=== PATIENT | male | born 1955 | race Caucasian/White ===

== ENCOUNTER → 2020-10-04 12:50 | Outpatient (BNVA) | payer MEDICARE, OTHER, SELFPAY | PROVIDERS: Family Provider Internal Medicine; PCP Internal Medicine; Visit Provider Nurse Practitioner Family | DX: J06.9 Acute upper respiratory infection, unspecified (principal); Z20.822 Contact with and (suspected) exposure to COVID-19 | CPT/HCPCS: 87426 ==

== ENCOUNTER 2020-10-06 05:49 | Outpatient (CLI) | payer MEDICARE, OTHER, SELFPAY ==
--- NOTE | 2020-10-06 07:30 | A.OFFVIS_ITS ---
Patient Information Referred by: NOAH Morales Symptom onset date: 10/02/20 COVID 19 common symptoms: positive fever(s), chills, cough, body aches, headache(s), throat pain, nasal congestion, nausea and diarrhea Severity: moderate Treatment prior to arrival: none Other details: Patient is a 64-year-old male who tested positive for COVID on 10/04. His vitals are stable/not requiring oxygen. Qualifies given his risk factors of age, CAD, DM, CHF. Risks and benefits of using experimental monoclonal antibody infusion discussed and patient would like to proceed. [facility] COVID test results: SARS-CoV-2 Antigen (Rapid) Positive (Negative) H 10/04/20 12:50 10/04/20 Criteria/Plan Inclusion/Exclusion Criteria weight >/= 40kg, + direct test </= 10 days ago and symptom onset </= 10 days ago age >/= 65, has diabetes, age >/= 55 and has hypertension and age >/= 55 and has diabetes not requiring hospitalization, not requiring oxygen (if not chronically on oxygen) and no increase oxygen requirement (if chronically on oxygen) Patient education patient/family/caregiver received/reviewed fact sheet, Emergency Use Authorization/unapproved drug status discussed with patient/family/caregiver, alternatives to this treatment discussed with patient/family/caregiver, risks and benefits of medication reviewed with patient/family/caregiver, patient/family/caregiver given opportunity for questions, which were answered and patient consents to receiving Monoclonal Antibody Treatment Plan for treatment Meets criteria for Monoclonal Antibody infusion Ordering Monoclonal Antibody infusion for today
[2020-10-06 07:56] VITALS: BP 164/69; PULSE 59; RESP 16; TEMP 37; O2SAT 96
[2020-10-06 09:01] VITALS: BP 169/78; PULSE 60; RESP 15; TEMP 36.5; O2SAT 96
[2020-10-06 10:04] VITALS: BP 174/72; PULSE 59; RESP 16; TEMP 36.7; O2SAT 97
--- NOTE | 2020-10-12 14:18 | DCPLANNER ---
manager package had message that patient received the monoclonal antibody infusion. manager package called to check on patient after receiving the infusion. manager package spoke with patients , she stated that patient is feeling much better. She stated that before the infusion, patient felt really fatigued, was really tired and weak. After the infusion patient is still a little weak, but he does not have any muscle aches, he has not ran a fever, he is still a little weak. Over all patient is doing good.
== END 2020-10-06 05:50 | disposition home or self-care (01) ==
LOC: ER 05:54
PROVIDERS: PCP Family Medicine; Visit Provider Nurse Practitioner Family
DX: U07.1 COVID-19 (principal)
CPT/HCPCS: 96365

== ENCOUNTER 2020-12-08 08:39 | Day surgery (SDC) | payer OTHER, MEDICARE, SELFPAY ==
--- NOTE | 2020-12-03 14:44 | PC.NURSE ---
Per Sherley Cullen, Cindy Del Rosario, and Incident Command the pt does NOT have to have a covid test done before his colonoscopy scheduled for Dec 08, 2020 because he tested positive for covid on October 04, 2020. Pt and his were notified as well as Dr. Camara.
[2020-12-06 08:08] VITALS: BMI 34.0
[2020-12-08 09:10] VITALS: BP 159/77; PULSE 65; RESP 18; TEMP 36.6; O2SAT 98
[2020-12-08] MEDS: sodium chloride 0.9% 1,000 ML 30 ML IV (09:26)
[2020-12-08 09:29] LABS: Glucose Point of Care 134 mg/dL (70-110)
--- NOTE | 2020-12-08 09:48 | ANES.PREANE2 ---
Pre-Anesthetic Assessment Pre-Anesthetic Assessment: Height/Weight: Height 1.68 m Weight 95.708 kg Temp Pulse Resp BP Pulse Ox 97.8 F 65 18 159/77 98 12/08/20 09:10 12/08/20 09:10 12/08/20 09:10 12/08/20 09:10 12/08/20 09:10 Preop Diagnosis: History of partial colectomy and ischemic colitis, occult blood Proposed Procedure: Operation Date: 12/08/20 10:00 Proposed Procedures p Colonoscopy 29597 z87.19(Not Applicable) - Santino Michael MD Was Beta Gary taken within 24 hours: Yes Was Clonidine taken within 24 hours: N/A Last intake: Intake Last Liquid Date 12/07/20 Last Liquid Time 19:00 Last Solid Date 12/06/20 Last Solid Time 19:00 Social: Social History: No alcohol and No tobacco Exam: Pre-Anes Outpt Exam: alert, oriented x 3, clear to auscultation bilaterally and regular rate & rhythm Airway: Submandibular: WNL Cervical ROM: WNL MP: 3 Dentition: Chipped Pulmonary: Pulmonary: Sleep apnea CV/HEM: CV/HEM: Afib and HTN GI: GI: GERD Metabolic: Metabolic: DM, Hyperlipidemia and Morbid obesity Anesthetic Plan: ASA status: 3 Anesthesia: MAC Risk of > 500 ml blood loss (7ml/kg in children): No Meds/Allergies Current Medications: Current Medications Generic Name Dose Route Start Last Admin Trade Name Freq PRN Reason Stop Dose Admin Sodium Chloride 1,000 mls @ 30 ml s/hr 12/08/20 09:00 12/08/20 09:26 Sodium Chloride 0.9% IV 12/09/20 08:59 30 mls/hr .Q24H KRUPA Administration PFSH Anesthesia PFSH: Medical History (Updated 10/04/20 @ 10:33 by Olga Lidia Parada APRN) CHF (congestive heart failure) Diabetes type 2, controlled Surgical History (Updated 10/04/20 @ 10:33 by Olga Lidia Parada APRN) History of open heart surgery triple Hx of aortic valve replacement tavr Hx of arterial bypass of lower limb both Hx of carpal tunnel repair both hands Hx of cholecystectomy Hx of knee surgery Data Anesthesia Other Labs: Laboratory Results - last 48 hr 12/08/20 09:24 POC Glucose 134 H Cardiac Studies: No Data to Display
--- NOTE | 2020-12-08 10:45 | P.HP_ITS ---
Same Day Surgery H&P Indication for Procedure/HPI DATE OF PROCEDURE: December 08, 2020 CHIEF COMPLAINT/INDICATIONFOR SURGICAL PROCEDURE: Blood in stool PREOP DIAGNOSIS: History of partial colectomy and ischemic colitis, occult blood PLANNED PROCEDRUE: Operation Date: 12/08/20 10:00 Proposed Procedures p Colonoscopy 35815 z87.19(Not Applicable) - Santino Michael MD This is a pleasant 64 years old gentleman with history of ischemic colitis and undergone partial colectomy in the past, patient was found to have occult blood in stool. Comes today escorted by his and reports that he had recent TAVR procedure on May 2020 and has been on Xarelto. Patient is referred to me for diagnostic colonoscopy. Patient is well-known to me from previous clinical encounter as he did undergo uneventful colonoscopy back in 2018 and was found to have normal findings. Interim history 12/08/2020 Patient comes today for diagnostic colonoscopy. ROS All systems have been reviewed negative except as per the above or per problem list Medications/Allergies* Home Medications Medication Instructions Recorded Confirmed Type amlodipine 10 mg tablet 10 mg PO DAILY 09/06/20 12/08/20 History bupropion HCl 150 mg 24 hr tablet, 150 mg PO QAM 09/06/20 12/08/20 History extended release coenzyme Q10 100 mg capsule 200 mg PO DAILY cap 09/06/20 12/08/20 History furosemide 40 mg tablet 60 mg PO DAILY tab 09/06/20 12/08/20 History insulin glargine 100 unit/mL (3 70 unit SUBCUT ONCE ml 09/06/20 12/08/20 History mL) subcutaneous pen loratadine 10 mg capsule 10 mg PO DAILY 09/06/20 12/08/20 History metoprolol succinate 100 mg 100 mg PO DAILY 09/06/20 12/08/20 History tablet,extended release 24 hr pantoprazole 20 mg tablet,delayed 20 mg PO DAILY 09/06/20 12/08/20 History release rivaroxaban 20 mg tablet 20 mg PO DAILY 09/06/20 12/08/20 History rosuvastatin 20 mg tablet 10 mg PO DAILY 09/06/20 12/08/20 History alogliptin 25 mg tablet 25 mg PO DAILY 10/04/20 12/08/20 History lisinopril 40 mg tablet 40 mg PO DAILY 10/04/20 12/08/20 History hydrochlorothiazide 12.5 mg PO DAILY 12/06/20 12/08/20 History Allergies/Adverse Reactions Allergy/AdvReac Type Severity Reaction Status Date / Time atorvastatin [From Lipitor] Allergy Severe Liver Verified 10/04/20 10:23 levels rise Current Medications: Generic Name Dose Route Start Last Admin Trade Name Edmund PRN Reason Stop Dose Admin Sodium Chloride 1,000 mls @ 30 mls/hr 12/08/20 09:00 12/08/20 09:26 Sodium Chloride 0.9% IV 12/09/20 08:59 30 mls/hr .Q24H KRUPA Administration Pertinent History/Comorbid Conditions* Medical History (Updated 10/04/20 @ 10:33 by Olga Lidia Parada APRN) CHF (congestive heart failure) Diabetes type 2, controlled Surgical History (Updated 10/04/20 @ 10:33 by Olga Lidia Parada APRN) History of open heart surgery triple Hx of aortic valve replacement tavr Hx of arterial bypass of lower limb both Hx of carpal tunnel repair both hands Hx of cholecystectomy Hx of knee surgery Pertinent Exam Findings alert, oriented x 3, clear to auscultation bilaterally, regular rate & rhythm and procedure specific exam findings (Abdominal examination nontender nondistended soft) Recommendations Surgery/Procedure today (Surveillance colonoscopy) Other Plans: Plan of care; After thorough history and physical examination and reviewing the chart, plan to perform surveillance colonoscopy. I discussed with the patient in details the risks,benefits,alternatives and indications.The risk of aspiration, bleeding, soft tissue injury, perforation of the colon and other potential concomitant complications were explained to the patient in details,also the potential need for Laproscoy/Laparotomy to repair any related complications including but not limited to colectomy and or Closotomy.The patient understood this well and did agree to proceed. Rationale was carefully and clearly discussed with the patient.Appropriate informed consent have been reviewed and signed All questions have been answered and all concerns have been addressed to patient's satisfaction. Verbal and written Instructions were given to the patient for colonoscopy prep Coding Level of Care Code Acute Relocation Services Specialist for Selma Alvarez
[2020-12-08 11:12] VITALS: BP 91/53; PULSE 54; RESP 16; TEMP 36.9; O2SAT 98
[2020-12-08 11:25] VITALS: BP 118/48; PULSE 61; RESP 18; O2SAT 99
--- NOTE | 2020-12-08 11:34 | PM.PACU ---
PACU note Post-Anesthesia Exam: awake and vital signs stable Disposition: discharged
--- NOTE | 2020-12-08 13:54 | ANE.PACU2 ---
Inpatient post-anesthesia follow up: Airway intact: Yes Vital signs: Temperature 98.4 F Pulse Rate 61 Respiratory Rate 18 Blood Pressure 118/48 Pulse Oximetry 99 Oxygen Delivery Me thod Room Air Oxygen Flow Rate Fraction of Inspir ed Oxygen Hydration adequate: Yes Nausea and vomiting: No Pain level: 1 Mental status: Baseline
== END 2020-12-08 11:45 | disposition home or self-care (01) ==
PROVIDERS: PCP Family Medicine; Visit Provider Surgery
PROC: 0DJD8ZZ Inspection of Lower Intestinal Tract, Via Natural or Artificial Opening Endoscopic (ICD-10-PCS; CPT 45378; principal; 2020-12-08 10:00)
DX: K92.1 Melena (principal); Z87.19 Personal history of other diseases of the digestive system; Z90.49 Acquired absence of other specified parts of digestive tract; I11.0 Hypertensive heart disease with heart failure; I50.9 Heart failure, unspecified; E11.9 Type 2 diabetes mellitus without complications; Z79.4 Long term (current) use of insulin; K63.89 Other specified diseases of intestine; G47.30 Sleep apnea, unspecified; I48.91 Unspecified atrial fibrillation; E78.5 Hyperlipidemia, unspecified; E66.01 Morbid (severe) obesity due to excess calories; Z68.34 Body mass index [BMI] 34.0-34.9, adult
CPT/HCPCS: 36416; 45380; 82962; 88305; 96360; 96361; J2704; J7030